=== PATIENT | female | born 1995 | race Hispanic/Latino ===

== ENCOUNTER 2022-04-29 08:18 | Emergency (ER) | payer OTHER ==
[~2022-04-29] VITALS: Ht 165.1 cm; Wt 90.7 kg
[2022-04-29] MEDS ORDERED: BELLADONNA ALK/PHENOBARBITAL 5 ML UDC PO ONE (09:00)
[2022-04-29] MEDS ORDERED: LIDOCAINE VISC 2% SOLN 15 ML UDC PO ONE (09:00)
[2022-04-29] MEDS ORDERED: MAGNESIUM/ALUMINUM/SIMETHICONE 30 ML UDC PO ONE (09:00)
[2022-04-29] MEDS ORDERED: LIDOCAINE VISC 2% SOLN 15 ML UDC ONE (09:04)
[2022-04-29] MEDS ORDERED: DICYCLOMINE HCL20 MG PO (09:33)
== END 2022-04-29 09:46 | disposition home or self-care (01) ==
LOC: ER 08:26
DX: R10.13 Epigastric pain (principal); K29.70 Gastritis, unspecified, without bleeding; R11.0 Nausea
CPT/HCPCS: 99284